=== PATIENT | female | born 1965 | race African-American/Black ===

== ENCOUNTER → 2016-10-19 | Outpatient (CLI) | payer OTHER, BC ==
--- NOTE | 2016-10-19 14:04 | MY ---
EXAMINATION: Bilateral digital mammography utilizing CAD. HISTORY: Screening exam. Comparison is made to previous studies dated 06/03/2013. FINDINGS: Bilateral heterogeneously dense breast tissue. No suspicious calcifications, masses or architectural distortions. No pathologic appearing lymph nodes, no abnormal skin thickening or nipple inversion. CAD highlighted regions appear normal at this time. IMPRESSION: BI-RADS category I - negative mammogram. Continued screening according to ACR-ACS guidelines sugg yuni. THE FALSE-NEGATIVE RATE OF MAMMOGRAM IS APPROXIMATELY 10%. MANAGEMENT OF A PALPABLE ABNORMALITY MUST BE BASED UPON CLINICAL GROUNDS. SENSITIVITY FOR DETECTION OF ABNORMALITIES IN DENSE BREASTS IS LOW. NOTE: A letter will be sent to the patient regarding findings. [facility] -- [place] [phone] - FAX [phone]
== END ==
LOC: MW.MAM 09:35
PROVIDERS: ATTEND Obstetrics & Gynecology
DX: Z12.31 Encounter for screening mammogram for malignant neoplasm of breast (principal)
CPT/HCPCS: G0202; G0202-26

== ENCOUNTER 2016-10-29 14:30 | Emergency (ER) | payer OTHER, BC ==
[2016-10-29] MEDS ORDERED: Ketorolac 30 MG/ML SDV IVPUSH ONE (14:44)
[2016-10-29] MEDS ORDERED: Sodium Chloride 0.9% 1,000 ML IV ONE ×3 (14:44→16:07)
--- NOTE | 2016-10-29 15:24 | EDM.PDOC ---
ED HPI GENERAL MEDICAL PROBLEM - General Chief Complaint: General Stated Complaint: UNK Time Seen by Provider: 10/29/16 14:35 Source of Information: Reports: Patient History Limitations: Reports: No limitations - History of Present Illness INITIAL COMMENTS - FREE TEXT/NARRATIVE: History of present illness: [50-year-old female presenting status post sinus balloon plasty up by approximately one week. Patient comes in with fever, chills, some general feelings of unwellness encloses of aches and pains nausea. Patient also a knowledge is that she had a liquid stool this morning and there was obvious dark blood in it.] Review of systems: As per history of present illness and below otherwise all systems reviewed and negative. Past medical history: As per history of present illness and as reviewed below otherwise noncontributory. Surgical history: As per history of present illness and as reviewed below otherwise noncontributory. Social history: No reported history of drug or alcohol abuse. Family history: As per history of present illness and as reviewed below otherwise noncontributory. Physical exam: HEENT: Atraumatic, normocephalic, pupils reactive, negative for conjunctival pallor or scleral icterus, mucous membranes moist, throat clear, neck supple, nontender, trachea midline. Lungs: Clear to auscultation, breath sounds equal bilaterally, chest nontender. Heart: S1S2, regular, negative for clicks, rubs, or JVD. Abdomen: Soft, nondistended, nontender. Negative for masses or hepatosplenomegaly. Negative for costovertebral tenderness. Pelvis: Stable nontender. Genitourinary: Deferred. Rectal: Deferred. Extremities: Atraumatic, negative for cords or calf pain. Neurovascular unremarkable. Neuro: Awake, alert, oriented. Cranial nerves II through XII unremarkable. Cerebellum unremarkable. Motor and sensory unremarkable throughout. Exam nonfocal. Rectal exam reflected positive occult blood via Guaiac CT negative Diagnostics: [ CBC, CMP, Hemoccult, CT with contrast] Therapeutics: [] Impression: [Sinus headache, UTI, or occult blood in stool] Plan: [Antibiotics followup with PCP] Definitive disposition and diagnosis as appropriate pending reevaluation and review of above. 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 Neurological History: Reports: None Psychiatric History: Reports: None Endocrine/Metabolic History: Reports: None Hematologic History: Reports: None Immunologic History: Reports: None Oncologic (Cancer) History: Reports: None Dermatologic History: Reports: None - Infectious Disease History Infectious Disease History: Reports: Measles, Mumps - Past Surgical History Head Surgeries/Procedures: Reports: None HEENT Surgical History: Reports: Naso-sinus surgery Social & Family History - Family History Family Medical History: Noncontributory - Tobacco Use Smoking Status *Q: Never Smoker - Caffeine Use Caffeine Use: Reports: None - Alcohol Use Days Per Week of Alcohol Use: 0 - Recreational Drug Use Recreational Drug Use: No ED ROS GENERAL - Review of Systems Review Of Systems: See Below (History of present illness) ED EXAM, GENERAL - Physical Exam Exam: See Below (See history of present illness) Course - Vital Signs Last Recorded V/S: Last Vital Signs Temp 36.7 C 10/29/16 15:16 Pulse 80 10/29/16 15:16 Resp 20 10/29/16 15:16 BP 118/66 10/29/16 15:16 Pulse Ox 100 10/29/16 15:16 - Orders/Labs/Meds Orders: Active Orders 24 hr Category Date Time Status Abdomen Pelvis w Cont [CT] Stat Exams 10/29/16 15:59 Taken Sodium Chloride 0.9% [Normal Saline] 1,000 ml Med 10/29/16 16:07 Active IV .Bolus Medication Orders Sodium Chloride (Normal Saline) 1,000 mls @ 999 mls/hr IV .Bolus ONE Stop: 10/29/16 17:07 Last Admin: 10/29/16 16:13 Dose: 999 mls/hr Labs: Laboratory Tests 10/29/16 10/29/16 10/29/16 Range/Units 15:00 15:00 15:59 WBC 8.16 (4.0-11.0) K/uL RBC 4.19 L (4.30-5.90) M/uL Hgb 11.9 L (12.0-16.0) g/dL Hct 36.4 (36.0-46.0) % MCV 86.9 (80.0-98.0) fL MCH 28.4 (27.0-32.0) pg MCHC 32.7 (31.0-37.0) g/dL RDW Std Deviation 41.5 (28.0-62.0) fl RDW Coeff of Juliet 13 (11.0-15.0) % Plt Count 376 (150-400) K/uL MPV 9.50 (7.40-12.00) fL Neut % (Auto) 55.1 (48.0-80.0) % Lymph % (Auto) 34.6 (16.0-40.0) % [place] % (Auto) 8.9 (0.0-15.0) % Eos % (Auto) 1.3 (0.0-7.0) % Baso % (Auto) 0.1 (0.0-1.5) % Neut # (Auto) 4.5 (1.4-5.7) K/uL Lymph # (Auto) 2.8 H (0.6-2.4) K/uL Winston # (Auto) 0.7 (0.0-0.8) K/uL Eos # (Auto) 0.1 (0.0-0.7) K/uL Baso # (Auto) 0.0 (0.0-0.1) K/uL Nucleated RBC % 0.0 /100WBC Nucleated RBCs # 0 K/uL Sodium 140 (136-146) mmol/L Potassium 4.1 (3.5-5.1) mmol/L Chloride 104 (98-110) mmol/L Carbon Dioxide 26 (21-31) mmol/L BUN 9 (6.0-23.0) mg/dL Creatinine 0.9 (0.6-1.5) mg/dL Est Cr Clr Drug Dosing TNP Estimated GFR (MDRD) > 60.0 ml/min Glucose 114 H (60-110) mg/dL Calcium 10.1 (8.8-10.8) mg/dL Total Bilirubin 0.8 (0.1-1.5) mg/dL AST 20 (5-40) IU/L ALT 14 (8-54) IU/L Alkaline Phosphatase 59 (40-150) Total Protein 7.8 (6.0-8.0) g/dL Albumin 4.2 (3.5-5.0) g/dL Globulin 3.6 H (2.0-3.5) g/dL Albumin/Globulin Ratio 1.2 L (1.3-2.8) Urine Color Urine Appearance Urine pH (5.0-8.0) Ur Specific [place] (1.001-1.035) Urine Protein (NEGATIVE) mg/dL Urine Glucose (UA) (NEGATIVE) mg/dL Urine Ketones (NEGATIVE) mg/dL Urine Occult Blood (NEGATIVE) Urine Nitrite (NEGATIVE) Urine Bilirubin (NEGATIVE) Urine Urobilinogen (<2.0) EU/dL Ur Leukocyte Esterase (NEGATIVE) Urine RBC (0-2/HPF) Urine WBC (0-5/HPF) Ur Epithelial Cells (NONE-FEW) Urine Bacteria (NEGATIVE) Urine Mucus (NONE-MOD) Urine HCG, Qual NEGATIVE (NEGATIVE) 10/29/16 Range/Units 15:59 WBC (4.0-11.0) K/uL RBC (4.30-5.90) M/uL Hgb (12.0-16.0) g/dL Hct (36.0-46.0) % MCV (80.0-98.0) fL MCH (27.0-32.0) pg MCHC (31.0-37.0) g/dL RDW Std Deviation (28.0-62.0) fl RDW Coeff of Juliet (11.0-15.0) % Plt Count (150-400) K/uL MPV (7.40-12.00) fL Neut % (Auto) (48.0-80.0) % Lymph % (Auto) (16.0-40.0) % Winston % (Auto) (0.0-15.0) % Eos % (Auto) (0.0-7.0) % Baso % (Auto) (0.0-1.5) % Neut # (Auto) (1.4-5.7) K/uL Lymph # (Auto) (0.6-2.4) K/uL Winston # (Auto) (0.0-0.8) K/uL Eos # (Auto) (0.0-0.7) K/uL Baso # (Auto) (0.0-0.1) K/uL Nucleated RBC % /100WBC Nucleated RBCs # K/uL Sodium (136-146) mmol/L Potassium (3.5-5.1) mmol/L Chloride (98-110) mmol/L Carbon Dioxide (21-31) mmol/L BUN (6.0-23.0) mg/dL Creatinine (0.6-1.5) mg/dL Est Cr Clr Drug Dosing Estimated GFR (MDRD) ml/min Glucose (60-110) mg/dL Calcium (8.8-10.8) mg/dL Total Bilirubin (0.1-1.5) mg/dL AST (5-40) IU/L ALT (8-54) IU/L Alkaline Phosphatase (40-150) Total Protein (6.0-8.0) g/dL Albumin (3.5-5.0) g/dL Globulin (2.0-3.5) g/dL Albumin/Globulin Ratio (1.3-2.8) Urine Color YELLOW Urine Appearance CLEAR Urine pH 6.5 (5.0-8.0) Ur Specific [place] 1.015 (1.001-1.035) Urine Protein NEGATIVE (NEGATIVE) mg/dL Urine Glucose (UA) NEGATIVE (NEGATIVE) mg/dL Urine Ketones NEGATIVE (NEGATIVE) mg/dL Urine Occult Blood MODERATE (NEGATIVE) Urine Nitrite NEGATIVE (NEGATIVE) Urine Bilirubin NEGATIVE (NEGATIVE) Urine Urobilinogen 0.2 (<2.0) EU/dL Ur Leukocyte Esterase SMALL (NEGATIVE) Urine RBC 0-1 (0-2/HPF) Urine WBC 1-4 (0-5/HPF) Ur Epithelial Cells FEW (NONE-FEW) Urine Bacteria 1+ H (NEGATIVE) Urine Mucus LIGHT (NONE-MOD) Urine HCG, Qual (NEGATIVE) Meds: Medications Generic Name Dose Route Start Last Admin Trade Name Freq PRN Reason Stop Dose Admin Sodium Chloride 1,000 mls @ 999 mls/hr 10/29/16 16:07 10/29/16 16:13 Normal Saline IV 10/29/16 17:07 999 mls/hr .Bolus ONE Administration Discontinued Medications Generic Name Dose Route Start Last Admin Trade Name Freq PRN Reason Stop Dose Admin Sodium Chloride 1,000 mls @ 999 mls/hr 10/29/16 14:44 10/29/16 15:03 Normal Saline IV 10/29/16 15:44 999 mls/hr STAT ONE Administration Sodium Chloride 1,000 mls @ 999 mls/hr 10/29/16 16:04 Normal Saline IV 10/29/16 17:04 .Bolus ONE Iopamidol 100 ml 10/29/16 16:03 10/29/16 16:15 Isovue-370 (76%) IVPUSH 10/29/16 16:04 100 ml ONETIME STA Administration Ketorolac Tromethamine 30 mg 10/29/16 14:44 10/29/16 15:10 Toradol IVPUSH 10/29/16 14:45 30 mg ONETIME ONE Administration Departure - Departure Time of Disposition: 17:07 Disposition: Home, Self-Care 01 Condition: good Clinical Impression: UTI, Urinary tract infectious disease, Occult blood positive stool, Sinusitis Forms: ED Department Discharge Additional Instructions: The following information is given to patients seen in the emergency department who are being discharged to home. This information is to outline your options for follow-up care. We provide all patients seen in our emergency department with a follow-up referral. The need for follow-up, as well as the timing and circumstances, are variable depending upon the specifics of your emergency department visit. If you don't have a primary care physician on staff, we will provide you with a referral. We always advise you to contact your personal physician following an emergency department visit to inform them of the circumstance of the visit and for follow-up with them and/or the need for any referrals to a consulting specialist. The emergency department will also refer you to a specialist when appropriate. This referral assures that you have the opportunity for follow-up care with a specialist. All of these measure are taken in an effort to provide you with optimal care, which includes your follow-up. Under all circumstances we always encourage you to contact your private physician who remains a resource for coordinating your care. When calling for follow-up care, please make the office aware that this follow-up is from your recent emergency room visit. If for any reason you are refused follow-up, please contact the [facility] Emergency Department at and asked to speak to the emergency department charge nurse. Take medication as directed Followup with PCP 1-2 day Return to ED as needed as discussed - My Orders Last 24 Hours: My Active Orders 10/29/16 15:59 Abdomen Pelvis w Cont [CT] Stat 10/29/16 16:07 Sodium Chloride 0.9% [Normal Saline] 1,000 ml IV .Bolus - Assessment/Plan Last 24 Hours: My Active Orders 10/29/16 15:59 Abdomen Pelvis w Cont [CT] Stat 10/29/16 16:07 Sodium Chloride 0.9% [Normal Saline] 1,000 ml IV .Bolus
[2016-10-29 15:29] LABS: CHLORIDE,CL 104 mmol/L (98-110); SODIUM,NA 140 mmol/L (136-146)
[2016-10-29] MEDS ORDERED: Iopamidol 755 Mg/ML 100 ML Bottle IVPUSH STA (16:03)
[2016-10-29 17:11] VITALS: BP 108/62
--- NOTE | 2016-10-30 13:01 | CT ---
EXAM DATE: 10/29/16 PATIENT'S AGE: 50 Patient: MEGAN SAUCEDO Facility: [place], [place] Site . Site : 1965 Study: CT Abdomen/Pelvis [id number]/30/2017 4:37:51 PM Ordering Physician: Doctor Mayers Final Report: INDICATION: Bloody stool. Technique: Volumetric CT acquisition of the abdomen and pelvis following the administration of 100 mL Isovue-370 intravenous contrast. Multiplanar reconstruction. Findings: The lung bases are clear. The liver, spleen, pancreas, adrenal glands, gallbladder, and biliary tract are unremarkable. Kidneys normal in size, shape, and position. Both kidneys are functioning. No hydronephrosis. No renal masses or focal parenchymal abnormalities. The abdominal aorta normal in caliber. No paraaortic or retrocrural lymphadenopathy. Normal bowel gas pattern. No inflammatory changes involving the bowel. The uterus is present. The urinary bladder has a smooth contour. No free fluid in the abdomen and pelvis. No acute bony abnormalities. Impression: No acute abnormality in the abdomen and pelvis. Dictated by Wesley Sanchez MD @ Oct 29 2016 4:38PM (Electronic Signature) Report Signed by Proxy. LEONELA
== END 2016-10-29 17:31 | disposition home or self-care (01) ==
LOC: MW.ED 14:30
DX: N39.0 Urinary tract infection, site not specified (principal); J32.9 Chronic sinusitis, unspecified; R19.5 Other fecal abnormalities
CPT/HCPCS: 36415; 74177; 80053; 81001; 81025; 85025; 96361; 96374; 99284; J1885; J7040; Q9967

== ENCOUNTER 2017-03-24 21:26 | Emergency (ER) | payer BC, OTHER ==
--- NOTE | 2017-03-24 21:49 | EDM.PDOC ---
ED HPI GENERAL MEDICAL PROBLEM - General Chief Complaint: Lower Extremity Injury/Pain Stated Complaint: PT HURT LT KNEE Time Seen by Provider: 03/24/17 21:49 Source of Information: Reports: Patient - History of Present Illness INITIAL COMMENTS - FREE TEXT/NARRATIVE: HISTORY AND PHYSICAL: History of present illness: []Patient had a fall tonight just prior to arrival, she denies any head injury or loss of consciousness. She had been going down a flight of 4 steps and slipped and fell does not know the exact mechanism however landing on her bottom of bottom of the steps during the course of the fall she twisted her left knee she heard a popping sensation now unable to bear weight due to pain 8 out of 10 with weightbearing 0 out of 10 at rest she denies any pain medication on arrival Fever nausea vomiting chills sweats no chest pain shortness breath headache dizziness or palpitation no bowel or urine symptoms Review of systems: As per history of present illness and below otherwise all systems reviewed and negative. Past medical history: As per history of present illness and as reviewed below otherwise noncontributory. Surgical history: As per history of present illness and as reviewed below otherwise noncontributory. Social history: No reported history of drug or alcohol abuse. Family history: As per history of present illness and as reviewed below otherwise noncontributory. Physical exam: HEENT: Atraumatic, normocephalic, pupils reactive, negative for conjunctival pallor or scleral icterus, mucous membranes moist, throat clear, neck supple, nontender, trachea midline. Lungs: Clear to auscultation, breath sounds equal bilaterally, chest nontender. Heart: S1S2, regular, negative for clicks, rubs, or JVD. Abdomen: Soft, nondistended, nontender. Negative for masses or hepatosplenomegaly. Negative for costovertebral tenderness. Pelvis: Stable nontender. Genitourinary: Deferred. Rectal: Deferred. Extremities: Atraumatic, negative for cords or calf pain. Neurovascular unremarkable. Neuro: Awake, alert, oriented. Cranial nerves II through XII unremarkable. Cerebellum unremarkable. Motor and sensory unremarkable throughout. Exam nonfocal. Left knee hip and ankle and affected mild discomfort with passive range of motion of the knee she has medial joint line tenderness no redness swelling or exudate no ballooning of the patella no open lesion entire limb is neurovascularly intact limited ligament exam due to pain Diagnostics: []Knee 3 views left Therapeutics: [][employer] Imm[employer]ilizer and crutches nonweightbearing Follow-up with or so in one week for reevaluation Impression: []Left knee pain Definitive disposition and diagnosis as appropriate pending reevaluation and review of above. left knee Pain Score (Numeric/FACES): 8 - Related Data Allergies Allergy/AdvReac Type Severity Reaction Status Date / Time No Known Allergies Allergy Verified 03/24/17 21:33 Home Meds: Home Meds . 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 Neurological History: Reports: None Psychiatric History: Reports: None Endocrine/Metabolic History: Reports: None Hematologic History: Reports: None Immunologic History: Reports: None Oncologic (Cancer) History: Reports: None Dermatologic History: Reports: None - Infectious Disease History Infectious Disease History: Reports: Measles, Mumps - Past Surgical History HEENT Surgical History: Reports: Naso-Sinus Surgery Social & Family History - Family History Family Medical History: Noncontributory - Tobacco Use Smoking Status *Q: Never Smoker - Caffeine Use Caffeine Use: Reports: Tea - Alcohol Use Days Per Week of Alcohol Use: 0 - Recreational Drug Use Recreational Drug Use: No Review of Systems - Review of Systems Review Of Systems: ROS reveals no pertinent complaints other than HPI. ED EXAM, GENERAL - Physical Exam Exam: See Below Course - Vital Signs Last Recorded V/S: Last Vital Signs Temp 37.2 C 03/24/17 21:26 Pulse 98 03/24/17 21:26 Resp 18 03/24/17 21:26 BP 123/63 03/24/17 21:26 Pulse Ox 98 03/24/17 21:26 - Orders/Labs/Meds Orders: Active Orders 24 hr Category Date Time Status Knee 3V Lt [CR] Stat Exams 03/24/17 21:45 Taken Departure - Departure Time of Disposition: 23:19 Disposition: Home, Self-Care 01 Condition: Good Clinical Impression: Left knee pain - Discharge Information Referrals: PCP,None [Primary Care Provider] - Forms: ED Department Discharge Additional Instructions: Immobilizer crutches nonweightbearing Ice 20 minute intervals 3 times daily 7-10 days Medication as prescribed Follow-up with orthopedist in approximately 1 week for reevaluation, you may call number below for appropriate follow-up to be scheduled [facility] [address], [address] [place] [address] my orthopedic The following information is given to patients seen in the emergency department who are being discharged to home. This information is to outline your options for follow-up care. We provide all patients seen in our emergency department with a follow-up referral. The need for follow-up, as well as the timing and circumstances, are variable depending upon the specifics of your emergency department visit. If you don't have a primary care physician on staff, we will provide you with a referral. We always advise you to contact your personal physician following an emergency department visit to inform them of the circumstance of the visit and for follow-up with them and/or the need for any referrals to a consulting specialist. The emergency department will also refer you to a specialist when appropriate. This referral assures that you have the opportunity for follow-up care with a specialist. All of these measure are taken in an effort to provide you with optimal care, which includes your follow-up. Under all circumstances we always encourage you to contact your private physician who remains a resource for coordinating your care. When calling for follow-up care, please make the office aware that this follow-up is from your recent emergency room visit. If for any reason you are refused follow-up, please contact the [facility] emergency department at and asked to speak to the emergency department charge nurse. - My Orders Last 24 Hours: My Active Orders 03/24/17 21:45 Knee 3V Lt [CR] Stat - Assessment/Plan Last 24 Hours: My Active Orders 03/24/17 21:45 Knee 3V Lt [CR] Stat
[2017-03-24 23:38] VITALS: BP 119/63
--- NOTE | 2017-03-26 18:09 | CR ---
EXAM DATE: 03/24/17 PATIENT'S AGE: 51 Patient: MEGAN SAUCEDO Facility: [place], [place] Site . Site : 1965 Study: XRay Knee Left [id number]/[id number]/2017 10:45:23 PM Ordering Physician: Riri Medina Final Report: Indication: Knee pain Technique: Left knee 3 views Comparison: None Findings: Bones: Alignment is normal. No fractures or bone lesions. Joint spaces: Joint spaces are well maintained. No degenerative changes. No sign of joint effusion. Soft tissues: Unremarkable. Impression: No findings to explain pain. Dictated by Navi Castellon MD @ 03/24/2017 11:06:03 PM Dictated by: Navi Castellon MD @ 03/24/2017 23:06:09 (Electronic Signature) Report Signed by Proxy. [facility]
== END 2017-03-24 23:58 | disposition home or self-care (01) ==
LOC: MW.ED 21:26
DX: M25.562 Pain in left knee (principal)
CPT/HCPCS: 73562-26-LT; 73562-LT; 99282; 99283